=== PATIENT | female | born 1995 | race Caucasian/White ===

== ENCOUNTER 2019-04-23 13:42 | Emergency (ER) | payer MEDICAID, OTHER ==
[~2019-04-23] VITALS: Ht 157.5 cm; Wt 71.3 kg
[~2019-04-23 13:42] MED LIST: IBUP-812 PO; LIDO20SO PO; NO HOME MEDS; OMEP-84 PO; OMEP20TA23 PO; PHEN-786 PO; PROM25TA14 PO; ZOF4T PO
[2019-04-23 14:05] VITALS: BP 116/84
--- NOTE | 2019-04-23 14:34 | NUR ---
STREP SWAB TAKEN AND SENT TO LAB
[2019-04-23] MEDS ORDERED: AMOX-580 PO (14:51)
[2019-04-23] MEDS ORDERED: dexamethasone sod phosphate 10mg/ml inj IM STA (14:53)
[2019-04-23] MEDS ORDERED: amox tr/potassium clavulanate 875/125mg TAB PO ONE (14:55)
[2019-04-23] MEDS ORDERED: ketorolac trometh. 30mg/ml inj. IM ONE (14:55)
== END 2019-04-23 15:25 | disposition home or self-care (01) ==
LOC: ER 13:43
DX: K02.9 Dental caries, unspecified (principal); F12.90 Cannabis use, unspecified, uncomplicated; Z79.899 Other long term (current) drug therapy
CPT/HCPCS: 87081; 87880; 96372; 99284; J1100; J1885

== ENCOUNTER 2024-03-25 21:44 | Emergency (ER) | payer MEDICAID, OTHER ==
[~2024-03-25] VITALS: Ht 154.9 cm; Wt 103.6 kg
[2024-03-25 21:51] VITALS: TEMP 98
[2024-03-25 22:16] LABS: BASOPHILS % (AUTO) 0.2 % (0-1); EOSINOPHILS # (AUTO) 0.1 X10'3 (0-0.9); EOSINOPHILS % (AUTO) 0.6 % (0-6); HEMATOCRIT 43.7 % (35.0-45.0); HEMOGLOBIN 14.6 g/dl (12.0-16.0); LYMPHOCYTES % (AUTO) 17.2 % (21-51); MEAN CORPUSCULAR HEMOGLOBIN 30.9 PG (27.0-31.0); MEAN CORPUSCULAR HGB CONC 33.3 g/dL (33.0-36.5); MEAN CORPUSCULAR VOLUME 92.6 FL (78-98); MEAN PLATELET VOLUME 8.4 FL (7.4-10.4); MONOCYTES # (AUTO) 0.8 X10'3 (0-0.9); MONOCYTES % (AUTO) 7.1 % (2-12); NEUTROPHILS # (AUTO) 8.7 X10'3 (1.8-7.7); NEUTROPHILS % (AUTO) 74.9 % (42-75); PLATELET COUNT 235 X10'3 (140-440); RED BLOOD COUNT 4.72 X10'6 (4.20-5.60); RED CELL DISTRIBUTION WIDTH 12.2 % (11.5-14.5); WHITE BLOOD COUNT 11.6 X10'3 (4.5-11.0)
[2024-03-25 22:29] LABS: ALANINE AMINOTRANSFERASE 229 U/L (12-78); ALBUMIN 3.3 G/DL (3.4-5.0); ALBUMIN/GLOBULIN RATIO 0.6 (1.1-1.5); ALKALINE PHOSPHATASE 122 IU/L (46-116); ANION GAP 15 (8-16); ASPARTATE AMINO TRANSFERASE 118 U/L (10-37); BILIRUBIN,TOTAL 0.7 MG/DL (0.1-1.0); BLOOD UREA NITROGEN 10 MG/DL (7-18); BUN/CREATININE RATIO 14.7 (10.0-20.0); CALCIUM 8.8 MG/DL (8.5-10.1); CHLORIDE 98 MMOL/L (99-107); CREATININE 0.68 MG/DL (0.40-0.90); GLUCOSE 112 MG/DL (70-104); LIPASE 20 U/L (16-77); SODIUM 135 MMOL/L (135-145); TOTAL CARBON DIOXIDE 22.3 MMOL/L (24-32); TOTAL PROTEIN 8.6 G/DL (6.4-8.2); eCRCL 94 ML/MIN; eGFR > 90 ML/MIN
[2024-03-25] MEDS: proCHLORperazine 10 MG/2 ml inj IV ONE (22:35)
[2024-03-25] MEDS: diphenhydrAMINE 50 mg/ml inj IV ONE (22:35)
[2024-03-25] MEDS: normal saline 1000ML IV soln IVB ONE (23:23)
[2024-03-26 00:15] VITALS: BP 112/68; PULSE 64; RESP 14; O2SAT 99
[2024-03-26 01:24] LABS: BILIRUBIN,URINE MODERATE (Neg); CLARITY,URINE SLIGHTLY CLOUDY (Clear); COLOR,URINE YELLOW (Yellow); GLUCOSE, URINE NEGATIVE (Neg); KETONES,URINE >=80 mg/dl (Neg); LEUKOCYTE ESTERASE ,URINE TRACE (Neg); NITRITES, URINE NEGATIVE (Neg); OCCULT BLOOD,URINE NEGATIVE (Neg); PROTEIN,URINE 30 mg/dl (Neg)
[2024-03-26 01:25] LABS: URINE HCG NEGATIVE (NEG)
[2024-03-26 01:28] LABS: UA COLLECTION TYPE CLN CATCH MIDSTREAM
[2024-03-26 01:30] LABS: BACTERIA,URINE FEW /HPF (Neg)
[2024-03-26 01:31] LABS: SQUAMOUS EPITHELIAL CELL,UR MODERATE /LPF (FEW)
[2024-03-26] MEDS ORDERED: CEFU250T95 PO (01:55)
[2024-03-26] MEDS: cephalexin 250mg capsule PO ONE (02:08)
== END 2024-03-26 02:14 | disposition home or self-care (01) ==
LOC: ER 21:44
DX: N39.0 Urinary tract infection, site not specified (principal); F12.90 Cannabis use, unspecified, uncomplicated; Z79.1 Long term (current) use of non-steroidal anti-inflammatories (NSAID); Z79.899 Other long term (current) drug therapy
CPT/HCPCS: 36415; 76705; 80053; 81001; 81025; 83605; 83690; 84145; 85025; 87088; 93308; 96374; 96375; 99285; J0780; J1200; J7030

== ENCOUNTER 2024-04-03 10:32 | Emergency (ER) | payer MEDICAID ==
[~2024-04-03 10:32] MED LIST changes: +CEFU250T95 PO
[2024-04-03 13:16] LABS: BASOPHILS # (AUTO) 0.1 X10'3 (0-0.2); BASOPHILS % (AUTO) 0.5 % (0-1); EOSINOPHILS # (AUTO) 0.1 X10'3 (0-0.9); HEMATOCRIT 43.5 % (35.0-45.0); HEMOGLOBIN 14.9 g/dl (12.0-16.0); LYMPHOCYTES # (AUTO) 2.8 X10'3 (1.1-4.8); LYMPHOCYTES % (AUTO) 25.3 % (21-51); MEAN CORPUSCULAR HEMOGLOBIN 31.4 PG (27.0-31.0); MEAN CORPUSCULAR HGB CONC 34.2 g/dL (33.0-36.5); MEAN CORPUSCULAR VOLUME 91.7 FL (78-98); MEAN PLATELET VOLUME 7.8 FL (7.4-10.4); MONOCYTES # (AUTO) 0.9 X10'3 (0-0.9); NEUTROPHILS # (AUTO) 7.3 X10'3 (1.8-7.7); NEUTROPHILS % (AUTO) 65.2 % (42-75); PLATELET COUNT 410 X10'3 (140-440); RED BLOOD COUNT 4.75 X10'6 (4.20-5.60); WHITE BLOOD COUNT 11.1 X10'3 (4.5-11.0)
[2024-04-03] MEDS: normal saline 1000ml 1,000 ML IV STA (13:25)
[2024-04-03] MEDS: diphenhydrAMINE 50 mg/ml inj IV STA (13:31)
[2024-04-03] MEDS: ketorolac trometh 30MG/ML vial 30 MG/ML VIAL IV STA (13:31)
[2024-04-03] MEDS: acetaminophen 1,000mg/100ml IV 100 ML IV STA (13:32)
[2024-04-03] MEDS: proCHLORperazine 10 MG/2 ml inj IV STA (13:32)
[2024-04-03 13:47] LABS: ALANINE AMINOTRANSFERASE 130 U/L (12-78); ALBUMIN 3.2 G/DL (3.4-5.0); ALBUMIN/GLOBULIN RATIO 0.6 (1.1-1.5); ALKALINE PHOSPHATASE 143 IU/L (46-116); ANION GAP 10 (8-16); ASPARTATE AMINO TRANSFERASE 36 U/L (10-37); BILIRUBIN,TOTAL 0.4 MG/DL (0.1-1.0); BLOOD UREA NITROGEN 8 MG/DL (7-18); BUN/CREATININE RATIO 13.6 (10.0-20.0); CALCIUM 9.1 MG/DL (8.5-10.1); CHLORIDE 101 MMOL/L (99-107); CREATININE 0.59 MG/DL (0.40-0.90); GLUCOSE 111 MG/DL (70-104); POTASSIUM 3.5 MMOL/L (3.5-5.1); SODIUM 140 MMOL/L (135-145); TOTAL CARBON DIOXIDE 28.6 MMOL/L (24-32); TOTAL PROTEIN 8.5 G/DL (6.4-8.2); eGFR > 90 ML/MIN
[2024-04-03 13:59] LABS: BILIRUBIN,URINE SMALL (Neg); CLARITY,URINE SLIGHTLY CLOUDY (Clear); COLOR,URINE YELLOW (Yellow); GLUCOSE, URINE NEGATIVE (Neg); KETONES,URINE 15 mg/dl (Neg); LEUKOCYTE ESTERASE ,URINE NEGATIVE (Neg); NITRITES, URINE NEGATIVE (Neg); OCCULT BLOOD,URINE NEGATIVE (Neg); PROTEIN,URINE NEGATIVE (Neg); UROBILINOGEN,URINE 0.2 E.U/dL (0.2-1.0)
[2024-04-03 14:01] LABS: UA COLLECTION TYPE CLN CATCH MIDSTREAM
[2024-04-03 14:10] LABS: BACTERIA,URINE FEW /HPF (Neg); CAL OXALATE CRYSTALS FEW /HPF (NEGATIVE); MUCUS STRANDS MODERATE /LPF (Neg); RBC,URINE 0-2 /HPF (0-2); SQUAMOUS EPITHELIAL CELL,UR MANY /LPF (FEW); WBC,URINE 0-4 /HPF (0-4)
[2024-04-03] MEDS ORDERED: MECL-302 PO (14:49)
[2024-04-03 14:56] VITALS: BP 130/78; PULSE 76; RESP 16; TEMP 98.9; O2SAT 98
== END 2024-04-03 15:06 | disposition home or self-care (01) ==
LOC: ER 10:33
DX: R42 Dizziness and giddiness (principal); G43.909 Migraine, unspecified, not intractable, without status migrainosus; F12.90 Cannabis use, unspecified, uncomplicated
CPT/HCPCS: 36415; 80053; 81001; 85025; 96365; 96375; 99284; J0131; J0780; J1200; J1885; J7030

== ENCOUNTER 2024-12-25 12:17 | Emergency (ER) | payer MEDICAID ==
[~2024-12-25] VITALS: Ht 154.9 cm; Wt 106.2 kg
[~2024-12-25 12:17] MED LIST changes: -CEFU250T95 PO; +MECL-302 PO
[2024-12-25 12:25] VITALS: TEMP 98.4
--- NOTE | 2024-12-25 13:04 | RADIOLOGY REPORT ---
PROCEDURE: Left wrist radiographs. INDICATION: WRIST PAIN TECHNIQUE: 3 views of the left wrist were obtained. COMPARISON: None. FINDINGS: There is acute distal radius fracture. There is a displaced ulnar styloid fracture. Soft tissue swelling in the wrist. IMPRESSION: 1. Acute distal radius fracture. 2. Displaced ulnar styloid fracture.
--- NOTE | 2024-12-25 14:14 | Physician Documentation ---
History of Present Illness ~ Chief Complaint: Wrist pain Stated Complaint: WRIST PAIN Time Seen by MD: 13:38 Primary Medical Doctor: n/a HPI 29-year-old female presents to the ED after falling today on her left upper extremity reports increased pain and swelling in her wrist region.. Denies any head strikes Day of Onset: Dec 25, 2024 Tetanus within 5 years: No Medication Reconciliation Allergies: Coded Allergies: No Known Allergies (Unverified , 12/25/24) Scheduled Ibuprofen (Motrin), 400 MG PO TID Meclizine HCl (Meclizine HCl), 1 TAB PO TID PRN Omeprazole Magnesium (Prilosec Otc), 20 MG PO BIDAC Omeprazole* (Prilosec*), 20 MG PO DAILY Ondansetron ODT* (Zofran ODT*), 4 MG PO Q6H Phenazopyridine Hcl (Pyridium tablet), 200 MG PO TID Promethazine HCl (Promethazine HCl), 25 MG PO BID Scheduled PRN Hydrocodone Bit/Acetaminophen 5/325 MG ([place] 5/325 MG), 1 TAB PO Q6H PRN for pain Lidocaine Hcl (Lidocaine Hcl Viscous), 15 ML PO Q6H PRN for sore throat Ondansetron (Zofran Odt Tab), 4 MG PO every 8 hour PRN Ondansetron ODT* (Zofran ODT*), 8 MG PO Q8H PRN Phenazopyridine Hcl (Pyridium tablet), 1 TAB PO Q8H PRN for severe pain Miscellaneous Medications Home Med List (No Home Medications), (Reported) Past Medical History Past Medical History: No Pertinent History Past Surgical History: no surgical history Alcohol Use: None Drug Use: marijuana Lives with: Mother Lives In: Home Occupation: student Review of Systems All Other Systems at this time: Reviewed and Negative ROS As stated above in the HPI, otherwise all systems are reviewed and negative. Physical Exam Vital Signs: Temperature: 98.4, Source: Temporal, Heart Rate: 99, Respiratory Rate: 20, BP: 123/68, Pulse Oximetry: 99, Weight: 106.200 Oxygen Flow Rate: 0 Physical Exam General: Alert, no apparent distress. HEENT: PERRL, EOMI, no injection, moist mucous membranes. Extremities: Normal range of motion, no deformity. Mild deformity and developing ecchymosis left wrist Neurologic: Oriented x4. Psychiatric: Normal mood and affect. Skin: Normal color, warm and dry. No edema, no ecchymosis. Procedures Splinting Splint Placed By: Aircraft Inspection Record Clerk Tolerated Procedure Well?: yes, no complications Procedure Note lidocaine w/epi injected for hematoma block.. Splint was placed by traffic engineering technician without difficulty Progress Results/Orders Results/Orders Orders - ONESIMO MAGANA [employer] Ortho Orders (12/25/24 ) Completed Orders - ONESIMO MAGANA [employer] Lidocaine 1% W/Epi 1:100,000 (Xylocaine (12/25/24 14:05) Hydrocodone/Apap 10/325 ([place] 10/325mg (12/25/24 14:10) Medications Received in ER Medications (Trade) Dose Ordered Sig/Axel Route PRN Reason Start Time Stop Time Status Last Admin Dose Admin ([place] 10/325mg tab) 1 tab ONCE ONCE PO 12/25/24 14:10 12/25/24 14:11 DC 12/25/24 14:20 1 TAB Vital Signs 12/25/24 12/25/24 12/25/24 12:25 14:20 15:05 Temp 98.4 Pulse 99 74 Resp 20 18 20 B/P (MAP) 123/68 102/63 Pulse Ox 99 95 O2 Flow Rate 0 Medical Decision Making Additional information obtaine: old records Findings Splinted by sterilization tech patient tolerated procedure well she will need to follow up in the outpatient setting General Diff Dx:Considerations: Include: Abrasion, Contusion, Fracture, Hematoma, Laceration, Malunion, Neurovascular injury, Open fracture, Sprain, Ulcer, Other Shoulder Diff Dx:Consideration: Unlikely: AC separation, Adhesive capsulitis, Arthritis, Bicipital tendonitis, Calcific tendonitis, Cervical disc disease, Contusion, Dislocation, Fracture-humerus, Fracture-scapula, Fracture-clavicle, GB disease, Hematoma, Impingement syndrome, Myocardial infarction, Neurovascular injury, Open fracture-humerus, Open fracture-scapula, Open fracture-clavicle, Rotator cuff injury, SC dislocatoin, Sprain, Subacromial bursitis, Other Elbow Diff Dx:Considerations: Unlikely: Abrasion, Arthritis, Contustion, DJD, Fracture-humerus, Fracture-radial head, Fracture-radius, Fracture-ulna, Gout, Hematoma, Laceration, Neurovascular injury, Olecranon bursitis, Open fracture, Osteomyelitis, Radial head subluxation, Rheumatoid arthritis, Septic, Sprain, Ulcer, Other Wrist Diff Dx:Considerations: Include: Abrasion, Arthritis, DJD, Gout, Rheumatoid, Septic, Carpal tunnel snydrome, Contusion, Dislocation, Fracture- carpal, Fracture-radius, Fracture-ulna, Ganglion, Laceration, Neurovascular injury, Open fracture, Strain, Other Hand Diff Dx:Considerations: Unlikely: Abrasion, Arthritis, Contusion, DJD, Felon, Fracture-carpal, Fracture-metacarpal, Fracture-phalynx, Fracture-radius, Fracture-ulna, Gout, Hematoma, Herpetic svetlana, Laceration, Neurovascular injury, Open fracture, Paronychia, Rheumatoid arthritis, Septic, Sprain, Subungual hematoma, Tenosynovitis, Volar plate injury, Cellulitis, Malunion, Other Finger Diff Dx:Considerations: Unlikely: Abrasion, Cellulitis, Contusion, Dislocation, Fracture, Hematoma, Laceration, Neurovascular injury, Open fracture, Subungual hematoma, Other Departure Disposition: 01 HOME / SELF CARE / HOMELESS Impression: Primary Impression: Wrist joint pain Additional Impression: Wrist fracture, left Discharge Instructions: Wrist Fracture Treated With Immobilization Additional Instructions: You were evaluated for left wrist fractures today. Send pain medication to your pharmacy in and have you follow up with Orthopedics for further evaluation Referrals: NO PRIMARY CARE PROVIDER (PCP) Prescriptions Hydrocodone Bit/Acetaminophen 5/325 MG ([place] 5/325 MG) 5 Mg/325 Mg Tablet 1 TAB PO Q6H PRN for pain, #14 TAB Prov: ONESIMO MAGANA NP 12/25/24 Signature Scribe Signature: v Attestation: Scribed for Onesimo Magana [employer] by Onesimo Gunderson NP . 12/25/24 14:24 ONESIMO MAGANA NP Dec 25, 2024 14:14
[2024-12-25] MEDS: LIDOcaine 1% W/epiNEPHrine 1:100,000 20ml vial SQ ONE (14:20)
[2024-12-25] MEDS: HYDROcodone/acetaminophen 10/325mg tab PO ONE (14:20)
[2024-12-25] MEDS ORDERED: HYDR-3965 PO (14:28)
[2024-12-25 15:05] VITALS: BP 102/63; PULSE 74; RESP 20; O2SAT 95
== END 2024-12-25 15:07 | disposition home or self-care (01) ==
LOC: ER 12:17
DX: S62.102A Fracture of unspecified carpal bone, left wrist, initial encounter for closed fracture (principal); F12.90 Cannabis use, unspecified, uncomplicated; Z79.899 Other long term (current) drug therapy; W18.30XA Fall on same level, unspecified, initial encounter; Y93.89 Activity, other specified; Y92.89 Other specified places as the place of occurrence of the external cause; Y99.8 Other external cause status
CPT/HCPCS: 29105; 29125; 73110; 99284; A4565; A6446; A6449